=== PATIENT | male | born 1950 | race Two or more races ===

== ENCOUNTER 2024-10-15 23:20 | Emergency (ER) | payer MEDICARE, BC ==
[~2024-10-15] VITALS: Ht 170.2 cm; Wt 73.9 kg
[2024-10-16] MEDS ORDERED: METF500S7 PO (00:05)
[2024-10-16] MEDS ORDERED: LISI20TA30 PO (00:05)
[2024-10-16] MEDS ORDERED: AMLO-212 PO (00:05)
[2024-10-16] MEDS ORDERED: ATEN50TA PO (00:05)
[2024-10-16] MEDS ORDERED: ATOR20TA PO (00:05)
[2024-10-16 00:18] VITALS: BP 136/77; TEMP 98.5; O2SAT 95
== END 2024-10-16 00:18 | disposition home or self-care (01) ==
LOC: ER 23:29
DX: I10 Essential (primary) hypertension (principal); R42 Dizziness and giddiness; E11.9 Type 2 diabetes mellitus without complications; E78.5 Hyperlipidemia, unspecified; E86.0 Dehydration; I35.0 Nonrheumatic aortic (valve) stenosis; Z79.899 Other long term (current) drug therapy